=== PATIENT | male | born 1960 | race Caucasian/White ===

== ENCOUNTER 2017-08-10 09:26 | Emergency (ER) | payer SELFPAY ==
[~2017-08-10] VITALS: Ht 177.8 cm; Wt 100.0 kg
[2017-08-10 09:31] VITALS: BP 210/103; PULSE 81; RESP 18; TEMP 98.4; O2SAT 95
[2017-08-10] MEDS ORDERED: SODIUM CHLOR 0.9% 1000 ML INJ 1,000 ML IV SCH (09:41)
--- NOTE | 2017-08-10 09:41 | PD ---
HPI Chief Complaint: Injury Time Seen by Provider: 09:37 Travel History International Travel<30 days: No Contact w/Intl Traveler<30days: No Traveled to known affect area: No History of Present Illness HPI 57-year-old male presents emergency department with severe left knee pain over the past 2 days. Patient denies any recent injury. Patient has history of arthritis in his left great toe and ankle seen by podiatry. He states x-rays and MRI were done showing arthritis but no diagnosis of gout has been given. Patient states he never had any blood work done. Patient denies fever, chills, or other constitutional symptoms. He has been taking ibuprofen without much improvement. Patient is noted to be hypertensive in triage, and he states he does not normally take blood pressure medications. The patient has pain 10 out of 10 and difficulty ambulating. He feels the left knee is swollen and somewhat warm. He has no known drug allergies. PFSH Social History Alcohol Use: Yes Tobacco Use: No Substance Use: No Allergies-Medications (Allergen,Severity, Reaction): Coded Allergies: No Known Allergies (Unverified , 08/10/17) Reported Meds & Prescriptions Reported Meds & Active Scripts Active Tramadol (Tramadol HCl) 50 Mg Tab 50 Mg PO Q6H PRN Prednisone (48) 10 mg tab Dose Pack (Prednisone) 10 Mg Dspk 10 Mg PO DIRECTED Review of Systems Except as stated in HPI: all other systems reviewed are Neg General / Constitutional: No: Fever Eyes: No: Visual changes HENT: No: Headaches Cardiovascular: No: Chest Pain or Discomfort Respiratory: No: Shortness of Breath Gastrointestinal: No: Abdominal Pain Genitourinary: No: Dysuria Musculoskeletal: Positive: Arthralgias, Limited ROM, Pain Skin: No Rash Neurologic: No: Weakness Psychiatric: No: Depression Endocrine: No: Polydipsia Hematologic/Lymphatic: No: Easy Bruising Physical Exam Narrative GENERAL: Patient appears in moderate distress per SKIN: Warm and dry. Normal color. Normal turgor. No obvious signs of abrasions or cellulitis. HEAD: Atraumatic. Normocephalic. EYES: Pupils equal and round. No scleral icterus. No injection or drainage. ENT: No nasal bleeding or discharge. Mucous membranes pink and moist. Pharynx is clear. Airway patent NECK: Trachea midline. Supple and nontender. CARDIOVASCULAR: Regular rate and rhythm. RESPIRATORY: No accessory muscle use. Clear to auscultation. Breath sounds equal bilaterally. MUSCULOSKELETAL: Extremities without clubbing, cyanosis, or edema. No obvious deformities. Patient has mild warmth, palpable crepitus with motion of the left knee, and decreased range of motion secondary to pain. No obvious laxity is noted however exam is limited secondary to patient's discomfort. No obvious increased erythema is noted. NEUROLOGICAL: Awake and alert. No obvious cranial nerve deficits. Motor grossly within normal limits. Five out of 5 muscle strength in the arms and legs. Normal speech. PSYCHIATRIC: Appropriate mood and affect; insight and judgment normal. Data Data Last Documented VS Vital Signs Date Time Temp Pulse Resp B/P (MAP) Pulse Ox O2 Delivery O2 Flow Rate FiO2 08/10/17 10:42 68 16 178/87 (117) 97 Room Air 08/10/17 09:31 98.4 Orders Orders Complete Blood Count With Diff (08/10/17 09:41) Comprehensive Metabolic Panel (08/10/17 09:41) Iv Access Insert/Monitor (08/10/17 09:41) Ecg Monitoring (08/10/17 09:41) Oximetry (08/10/17 09:41) Morphine Inj (Morphine Inj) (08/10/17 09:45) Ondansetron Inj (Zofran Inj) (08/10/17 09:45) Sodium Chlor 0.9% 1000 Ml Inj (Ns 1000 M (08/10/17 09:41) Sodium Chloride 0.9% Flush (Ns Flush) (08/10/17 09:45) Knee, Complete (4vws) (08/10/17 09:41) Ice/Cold Pack (08/10/17 09:41) Splint Or Brace Apply/Monitor (08/10/17 09:41) Dexamethasone Inj (Decadron Inj) (08/10/17 09:45) Ketorolac Inj (Toradol Inj) (08/10/17 09:45) Uric Acid (08/10/17 09:41) Crutches (08/10/17 10:51) Labs Laboratory Tests Test 08/10/17 10:00 White Blood Count 9.6 TH/MM3 Red Blood Count 4.62 MIL/MM3 Hemoglobin 14.4 GM/DL Hematocrit 40.8 % Mean Corpuscular Volume 88.2 FL Mean Corpuscular Hemoglobin 31.3 PG Mean Corpuscular Hemoglobin Concent 35.4 % Red Cell Distribution Width 12.8 % Platelet Count 224 TH/MM3 Mean Platelet Volume 9.3 FL Neutrophils (%) (Auto) 69.6 % Lymphocytes (%) (Auto) 19.2 % Monocytes (%) (Auto) 8.4 % Eosinophils (%) (Auto) 1.9 % Basophils (%) (Auto) 0.9 % Neutrophils # (Auto) 6.7 TH/MM3 Lymphocytes # (Auto) 1.8 TH/MM3 Monocytes # (Auto) 0.8 TH/MM3 Eosinophils # (Auto) 0.2 TH/MM3 Basophils # (Auto) 0.1 TH/MM3 CBC Comment AUTO DIFF Differential Comment AUTO DIFF CONFIRMED Blood Urea Nitrogen 13 MG/DL Creatinine 1.16 MG/DL Random Glucose 123 MG/DL Total Protein 7.9 GM/DL Albumin 3.7 GM/DL Calcium Level 9.0 MG/DL Alkaline Phosphatase 97 U/L Aspartate Amino Transf (AST/SGOT) 20 U/L Alanine Aminotransferase (ALT/SGPT) 36 U/L Total Bilirubin 0.5 MG/DL Sodium Level 136 MEQ/L Potassium Level 4.1 MEQ/L Chloride Level 100 MEQ/L Carbon Dioxide Level 28.0 MEQ/L Anion Gap 8 MEQ/L Estimat Glomerular Filtration Rate 65 ML/MIN Uric Acid 7.1 MG/DL [facility] Medical Decision Making Medical Screen Exam Complete: Yes Emergency Medical Condition: Yes Differential Diagnosis Knee effusion. Arthrosis. Gouty arthritis. Pseudogout. Narrative Course Patient is medically stable at time of exam. IV access is obtained and labs are checked including CBC, CMP, and uric acid level. Patient is given 1000 mL's normal saline bolus as well as 4 mg Zofran IV, 2 mg morphine IV, and 30 mg Toradol IV. X-ray of the left knee is ordered. X-ray shows no acute process. CBC is unremarkable. Uric acid is 7.1. CMP shows no acute findings. Patient is placed in a knee immobilizer and crutches for comfort. Patient is continued on prednisone Dosepak as prescribed. Patient is given tramadol 50 mg 1 every 6 hours as needed pain #20. Patient is recommended to follow-up with Dr. Garcia, the orthopedist on-call if symptoms continue or worsen. Patient can return the emergency department if symptoms worsen as well. Diagnosis Primary Impression: Arthritis of left knee Referrals: Taye Garcia MD Patient Instructions: General Instructions, Gout (ED), Knee Immobilizer (DC), Pseudogout (ED) Additional Instructions: X-ray shows no acute process. CBC is unremarkable. Uric acid is 7.1. CMP shows no acute findings. Patient is placed in a knee immobilizer and crutches for comfort. Patient is continued on prednisone Dosepak as prescribed. Patient is given tramadol 50 mg 1 every 6 hours as needed pain #20. Patient is recommended to follow-up with Dr. Garcia, the orthopedist on-call if symptoms continue or worsen. Patient can return the emergency department if symptoms worsen as well. Med/Other Pt SpecificInfo: Prescription(s) given Scripts Tramadol (Tramadol) 50 Mg Tab 50 MG PO Q6H Y for PAIN, #20 TAB 0 Refills Prov: Kimberly Mercado MD 08/10/17 Prednisone (48) 10 mg tab Dose Pack (Prednisone (48) 10 mg tab Dose Pack) 10 Mg Dspk 10 MG PO DIRECTED for Inflammation, #1 DSPK 0 Refills Prov: Kimberly Mercado MD 08/10/17 Disposition: 01 DISCHARGE HOME Condition: Stable Jonatan Renee Aug 10, 2017 09:41
[2017-08-10] MEDS ORDERED: DEXAMETHASONE SOD PHOS 20 MG/5 ML VIAL IV PUSH ONE (09:45)
[2017-08-10] MEDS ORDERED: MORPHINE SULFATE 4 MG/ML INJ IV PUSH ONE (09:45)
[2017-08-10] MEDS ORDERED: KETOROLAC TROMETHAMINE 30 MG/ML (IVP) VIAL IV PUSH ONE (09:45)
[2017-08-10] MEDS ORDERED: ONDANSETRON HCL 4 MG/2 ML VIAL IVP ONE (09:45)
[2017-08-10] MEDS ORDERED: SODIUM CHLORIDE 0.9% FLUSH 10 ML FLUSH IV FLUSH PRN (09:45)
[2017-08-10 10:06] VITALS: O2SAT 99
[2017-08-10 10:18] LABS: AUTOMATED NEUTROPHIL # 6.7 TH/MM3 (1.8-7.7); BASOPHIL # 0.1 TH/MM3 (0-0.2); BASOPHIL % 0.9 % (0.0-2.0); EOSINOPHIL # 0.2 TH/MM3 (0-0.4); EOSINOPHIL % 1.9 % (0.0-4.0); HEMATOCRIT 40.8 % (39.0-51.0); HEMOGLOBIN 14.4 GM/DL (13.0-17.0); LYMPH % 19.2 % (9.0-44.0); LYMPHOCYTE # 1.8 TH/MM3 (1.0-4.8); MEAN CELL VOLUME 88.2 FL (80.0-100.0); MEAN CORPUSCULAR HEMOGLOBIN 31.3 PG (27.0-34.0); MEAN CORPUSCULAR HGB CONC 35.4 % (32.0-36.0); MEAN PLATELET VOLUME 9.3 FL (7.0-11.0); MONO % 8.4 % (0.0-8.0); MONOCYTE # 0.8 TH/MM3 (0-0.9); NEUT % 69.6 % (16.0-70.0); PLATELET COUNT 224 TH/MM3 (150-450); RED BLOOD COUNT 4.62 MIL/MM3 (4.50-5.90); RED CELL DISTRIBUTION WIDTH 12.8 % (11.6-17.2); WHITE BLOOD COUNT 9.6 TH/MM3 (4.0-11.0)
[2017-08-10 10:42] VITALS: BP 178/87; PULSE 68; RESP 16; O2SAT 97
[2017-08-10 10:45] LABS: ALBUMIN 3.7 GM/DL (3.4-5.0); AST (GOT) 20 U/L (15-37); BLOOD UREA NITROGEN 13 MG/DL (7-18); CHLORIDE 100 MEQ/L (98-107); CREATININE 1.16 MG/DL (0.60-1.30); GLOMERULAR FILTRATION RATE 65 ML/MIN (>89); GLUCOSE,RANDOM 123 MG/DL (74-106); SODIUM (NA) 136 MEQ/L (136-145)
[2017-08-10 10:46] LABS: ALT (GPT) 36 U/L (12-78)
[2017-08-10 10:48] LABS: ALKALINE PHOSPHATASE 97 U/L (45-117); TOTAL BILIRUBIN ADULT 0.5 MG/DL (0.2-1.0); TOTAL PROTEIN 7.9 GM/DL (6.4-8.2)
--- NOTE | 2017-08-10 10:49 | RADRPT ---
EXAM DATE/TIME: 08/10/2017 10:13 [facility] COMPARISON: No previous studies available for comparison. INDICATIONS : Severe pain with no known injury. MEDICAL HISTORY : None. SURGICAL HISTORY : None. ENCOUNTER: Initial ACUITY: 3 days PAIN SCORE: 10/10 LOCATION: Left Knee. FINDINGS: There is no acute fracture or dislocation. No knee joint effusion is noted. Spurring is noted along t he anterior superior and anterior inferior aspects of the patella. CONCLUSION: No acute fracture or dislocation. Anterior superior and inferior patellar spurring. Sebastian Vanessa MD on August 10, 2017 at 10:46 Board Certified Radiologist. This report was verified electronically.
[2017-08-10] MEDS ORDERED: TRAM50TA PO (10:50)
[2017-08-10] MEDS ORDERED: PRED10PA2 PO (10:50)
== END 2017-08-10 11:41 | disposition home or self-care (01) ==
LOC: NEPD 09:26
DX: M17.12 Unilateral primary osteoarthritis, left knee (principal); Z79.899 Other long term (current) drug therapy
CPT/HCPCS: 73564; 80053; 84550; 85025; 96374; 96375; 99284; E0113; J1100; J1885; J2270; J2405; J7030; L1830